=== PATIENT | female | born 1985 | race Caucasian/White ===

== ENCOUNTER 2017-12-29 00:09 | Emergency (ER) | payer MEDICAID, OTHER ==
[~2017-12-29 00:09] MED LIST: AMOX875T20 PO
[2017-12-29 00:22] VITALS: BP 94/57; PULSE 82; RESP 15; TEMP 98.5; O2SAT 98
--- NOTE | 2017-12-29 00:59 | PD ---
HPI Chief Complaint: Abdominal Pain Time Seen by Provider: 00:48 Travel History International Travel<30 days: No Contact w/Intl Traveler<30days: No Traveled to known affect area: No History of Present Illness HPI 32-year-old female presents to the emergency department by private transportation the care of her children for evaluation of vaginal discharge. Patient is noted vaginal discharge for the last 2 months worsening over the past few days. Patient states that she has history of recurrent bacterial vaginosis. Patient has had some malodorous discharge denies or abnormal vaginal bleeding. Patient is not sexually active at this time. Patient from her on Mother's Day in November. Patient is recently moved to the area from [place]. Patient states that she is supposed to be on medication BuSpar and Ativan but has been out of this medicine for approximately 3 3 weeks. 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 Patient denies other concerns or complaints. Patient denies being suicidal or homicidal. Patient does not feel like she needs a mental health evaluation at this time. Patient states she has noted some increased stress since moving to the area because she had hoped for more family support than what she has at this time but otherwise she is doing well except for this discharge. Patient is unable to identify exacerbating or alleviating factors. No fever no chills no nausea no vomiting no dysuria frequency urgency hematuria or flank pain. PFSH Past Medical History Narrative Medical Anemia anxiety bacterial vaginosis ovarian cysts cholecystectomy; no tobacco use; nursing notes reviewed Anemia: Yes Arthritis: No Asthma: No Autoimmune Disease: No Blood Disorders: No Anxiety: Yes Depression: No Heart Rhythm Problems: No Cancer: No Cardiovascular Problems: No High Cholesterol: No Chemotherapy: No Chest Pain: No Congestive Heart Failure: No COPD: No Cerebrovascular Accident: No Diabetes: No Diminished Hearing: No Endocrine: No GERD: No Glaucoma: No Genitourinary: No Headaches: Yes Hepatitis: No Hiatal Hernia: No Hypertension: No Kidney Stones: No Neurologic: No Psychiatric: No Reproductive: Yes (HAS 4 MONTH OLD INFANT.) Respiratory: No Myocardial Infarction: No Radiation Therapy: No Renal Failure: No Seizures: No Sickle Cell Disease: No Sleep Apnea: No Thyroid Disease: Yes Ulcer: No ?: Not LMP: Depo : 6 Para: 5 Miscarriage: 1 Ovarian Cysts: Yes (RT OVARY; IRREGULAR MENSES) Past Surgical History Abdominal Surgery: No AICD: No Body Medical Devices: NONE Cardiac Surgery: No Section: Yes (2005, 2003) Cholecystectomy: Yes (2004) Ear Surgery: No Endocrine Surgery: No Eye Surgery: No Genitourinary Surgery: No Gynecologic Surgery: Yes Neurologic Surgery: No Oral Surgery: No Pacemaker: No Thoracic Surgery: No Other Surgery: Yes (c section 10 mos ago) Social History Alcohol Use: No Tobacco Use: No Substance Use: No Allergies-Medications (Allergen,Severity, Reaction): Coded Allergies: No Known Allergies (Verified Allergy, Unknown, 12/29/17) Reported Meds & Prescriptions Reported Meds & Active Scripts Active Amoxicillin/Clavulanate P (Amoxicillin/Clavulanate Potassium) 875 Mg Tab 875 Mg PO BID 10 Days Review of Systems Except as stated in HPI: all other systems reviewed are Neg Physical Exam Narrative GENERAL: Well-developed well-nourished female no acute distress no respiratory distress SKIN: Warm and dry. HEAD: Normocephalic. EYES: No scleral icterus. No injection or drainage. NECK: Supple, trachea midline. No JVD or lymphadenopathy. CARDIOVASCULAR: Regular rate and rhythm without murmurs, gallops, or rubs. RESPIRATORY: Breath sounds equal bilaterally. No accessory muscle use. GASTROINTESTINAL: Abdomen soft, non-tender, nondistended. Pelvic exam: Normal external exam no redness induration or lesion; speculum exam thick yellow mucus cervical loss is closed friable mucous membrane; bimanual exam no cervical motion tenderness no adnexal mass or tenderness no uterine enlargement. MUSCULOSKELETAL: No cyanosis, or edema. BACK: Nontender without obvious deformity. No CVA tenderness. Data Data Last Documented VS Vital Signs Date Time Temp Pulse Resp B/P (MAP) Pulse Ox O2 Delivery O2 Flow Rate FiO2 12/29/17 00:22 98.5 82 15 94/57 (69) 98 Orders Orders Gc And Chlamydia Pcr (12/29/17 00:48) Wet Prep Profile (12/29/17 00:48) Urinalysis - C+S If Indicated (12/29/17 00:48) Ed Urine Pregnancytest Poc (12/29/17 00:48) Ceftriaxone Inj (Rocephin Inj) (12/29/17 02:30) Lidocaine 1% Inj (50 Ml) (Xylocaine 1% I (12/29/17 02:30) Azithromycin (Zithromax) (12/29/17 02:45) Labs Laboratory Tests Test 12/29/17 01:00 Clue Cells (Wet Prep) NONE SEEN Vaginal Trichomonas (Wet Prep) PRESENT Vaginal Yeast (Wet Prep) NONE SEEN MDM Medical Decision Making Medical Screen Exam Complete: Yes Emergency Medical Condition: Yes Medical Record Reviewed: Yes Interpretation(s) wet prep: Positive trichomonas [id number] hCG: Negative UA: Differential Diagnosis Bacterial vaginosis PID STI UTI Narrative Course Patient with vaginal discharge concerning for possible STI will treat with Rocephin and azithromycin [id number] negative urinalysis pending wet prep pending Diagnosis Primary Impression: Trichomonal vaginitis Referrals: Manager Administrative Services call for appointment Primary Care Physician call for appointment Patient Instructions: General Instructions Additional Instructions: Take medication as prescribed 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
[2017-12-29 01:32] LABS: BACTERIA, URINE RARE /hpf; BILIRUBIN, URINE NEG (NEG); BLOOD, URINE TRACE (NEG); GLUCOSE,URINE NEG (NEG); KETONE, URINE NEG (NEG); MUCUS URINE MOD /lpf (OCC); NITRITE,URINE NEG (NEG); SQUAMOUS EPITHELIAL CELL URINE 9 /hpf (0-5); TRICHOMONAS, URINE OCC; URINE COLOR YELLOW (YELLW/STRAW); URINE LEUKOCYTE ESTERASE LARGE (NEG)
[2017-12-29] MEDS ORDERED: cefTRIAXone 250 MG VIAL IM ONE (02:30)
[2017-12-29] MEDS ORDERED: LIDOCAINE HCL 1% 50 ML VIAL IM ONE (02:30)
[2017-12-29] MEDS ORDERED: AZITHROMYCIN 250 MG TAB PO ONE (02:45)
[2017-12-29] MEDS ORDERED: METR-1 PO (02:52)
[2017-12-29] MEDS ORDERED: AZITHROMYCIN 250 MG TAB PO SCH (09:00)
== END 2017-12-29 03:49 | disposition home or self-care (01) ==
LOC: NEPC 00:09
DX: A59.01 Trichomonal vulvovaginitis (principal)
CPT/HCPCS: 81001; 84703; 87210; 87491; 87591; 96372; 99284; J0696